=== PATIENT | female | born 1995 | race Caucasian/White ===

== ENCOUNTER → 2017-04-17 | Outpatient (CLI) | payer BC ==
[~2017-04-17] MED LIST: SOLODYN PO
== END ==
LOC: US 15:00
DX: Z13.29 Encounter for screening for other suspected endocrine disorder (principal); E04.2 Nontoxic multinodular goiter

== ENCOUNTER → 2017-08-18 | Outpatient (CLI) | payer BC | END | disposition home or self-care (01) | LOC: US 08-13 10:00 | DX: R10.9 Unspecified abdominal pain (principal) ==

== ENCOUNTER 2019-11-07 09:01 | Emergency (ER) | payer BC ==
[~2019-11-07] VITALS: Ht 162.5 cm; Wt 54.4 kg
[2019-11-07 09:41] LABS: BASO # 0.1 10*3/uL (0.0-0.1); EOS # 0.3 10*3/uL (0.0-0.4); EOS % 3.1 % (1.0-4.0); HEMATOCRIT 35.8 % (37.0-47.0); LYMPH # 2.7 10*3/uL (1.3-4.4); LYMPH % 31.6 % (27.0-41.0); MEAN CELL VOLUME 95.2 fl (81.0-99.0); MEAN CORPUSCULAR HGB 30.6 pg (27.0-31.0); MEAN CORPUSCULAR HGB CONC 32.1 g/dl (33.0-37.0); MONO # 0.6 10*3/uL (0.1-1.0); MONO % 6.4 % (3.0-9.0); NEUT % 57.6 % (47.0-73.0); PLATELET COUNT AUTOMATED 345 10*3/uL (130-400); RED BLOOD COUNT 3.76 10*6/uL (4.10-5.10); RED CELL DISTRI WIDTH 13.7 % (0-14.5); WHITE BLOOD COUNT 8.7 10*3/uL (4.8-10.8)
[2019-11-07 09:42] LABS: BILIRUBIN NEGATIVE (NEGATIVE); CLARITY CLOUDY (CLEAR); COLOR YELLOW (YELLOW); GLUCOSE NEGATIVE (NEGATIVE); KETONE NEGATIVE (NEGATIVE)
[2019-11-07 09:43] LABS: BACTERIA 2+; BLOOD 3+ (NEGATIVE); EPITHELIAL CELLS 21-30; LEUKO ESTERASE NEGATIVE (NEGATIVE); MUCOUS 2+; NITRITE NEGATIVE (NEGATIVE); RBC 51-100 rbc/hpf (0-2); UROBILINOGEN 0.2 E.U./dl (0.2-1.0)
[2019-11-07 09:56] LABS: ALBUMIN 3.1 gm/dl (3.1-4.5); ALKALINE PHOSPHATASE 45 U/L (45-117); BUN 14 mg/dl (7-24); CHLORIDE 106 mmol/L (98-107); CREATININE 0.77 mg/dL (0.55-1.02); LIPASE 95 U/L (73-393); POTASSIUM 4.1 mmol/L (3.5-5.1); SGOT/AST 10 IU/L (3-35); SGPT/ALT 15 U/L (12-78); SODIUM 137 mmol/L (136-145); TOTAL PROTEIN 7.2 gm/dL (6.4-8.2)
[2019-11-07] MEDS ORDERED: FLOMAX0.4 MG PO (11:30)
[2019-11-07] MEDS ORDERED: NAPROSYN500 MG PO (11:30)
[2019-11-07] MEDS ORDERED: ZOFRAN4 MG PO (11:30)
== END 2019-11-07 11:25 | disposition home or self-care (01) ==
LOC: ED 09:01
PROVIDERS: Nurse Practitioner Family
DX: N20.9 Urinary calculus, unspecified (principal); Z79.899 Other long term (current) drug therapy

== ENCOUNTER → 2019-11-25 | Outpatient (CLI) | payer BC ==
[~2019-11-25] MED LIST changes: +FLOMAX0.4 MG PO; +NAPROSYN500 MG PO; +ZOFRAN4 MG PO
== END | disposition home or self-care (01) ==
LOC: US 11-15 10:00
DX: N20.0 Calculus of kidney (principal)

== ENCOUNTER 2020-12-13 20:12 | Emergency (ER) | payer OTHER, BC ==
[~2020-12-13] VITALS: Ht 162.5 cm; Wt 52.2 kg
[2020-12-13] MEDS ORDERED: METHOCARBAMOL500 M1 PO (21:02)
[2020-12-13] MEDS ORDERED: NAPROXEN250 MG PO (21:02)
== END 2020-12-13 21:20 | disposition home or self-care (01) ==
LOC: ED 20:12
DX: R07.89 Other chest pain (principal); Z79.899 Other long term (current) drug therapy; V49.88XA Car occupant (driver) (passenger) injured in other specified transport accidents, initial encounter; Y93.89 Activity, other specified; Y92.413 State road as the place of occurrence of the external cause; Y99.9 Unspecified external cause status

== ENCOUNTER → 2022-10-10 | Outpatient (CLI) | payer OTHER ==
[~2022-10-10] MED LIST changes: +METHOCARBAMOL500 M1 PO; +NAPROXEN250 MG PO
== END | disposition home or self-care (01) ==
LOC: TELEHEALTH 00:55
PROVIDERS: ATTEND Internal Medicine
DX: I26.02 Saddle embolus of pulmonary artery with acute cor pulmonale (principal); Z82.49 Family history of ischemic heart disease and other diseases of the circulatory system; Z30.09 Encounter for other general counseling and advice on contraception; Z15.89 Genetic susceptibility to other disease; Z79.01 Long term (current) use of anticoagulants; Z91.040 Latex allergy status; Z79.899 Other long term (current) drug therapy

== ENCOUNTER → 2022-12-04 | Outpatient (CLI) | payer OTHER ==
[2022-12-04 13:32] LABS: BASO # 0.1 10*3/uL (0.0-0.1); BASO % 1.7 % (0.0-1.0); EOS # 0.1 10*3/uL (0.0-0.4); EOS % 1.7 % (1.0-4.0); HEMATOCRIT 42.3 % (37.0-47.0); LYMPH # 2.3 10*3/uL (1.3-4.4); LYMPH % 36.4 % (27.0-41.0); MEAN CELL VOLUME 92.2 fl (81.0-99.0); MEAN CORPUSCULAR HGB 30.9 pg (27.0-31.0); MEAN CORPUSCULAR HGB CONC 33.6 g/dl (33.0-37.0); MEAN PLATELET VOLUME 9.2 fl (9.6-12.3); MONO # 0.6 10*3/uL (0.1-1.0); MONO % 10.1 % (3.0-9.0); NEUT # 3.2 10*3/uL (2.3-7.9); NEUT % 49.9 % (47.0-73.0); PLATELET COUNT AUTOMATED 398 10*3/uL (130-400); RED BLOOD COUNT 4.59 10*6/uL (4.10-5.10); RED CELL DISTRI WIDTH 12.6 % (0-14.5); WHITE BLOOD COUNT 6.4 10*3/uL (4.8-10.8)
[2022-12-05 14:08] LABS: ANTICARDIOLIPIN AB, IGG, QN <9 GPL U/mL (0-14); ANTICARDIOLIPIN AB, IGM, QN 10 MPL U/mL (0-12)
[2022-12-06 07:07] LABS: DILUTE PROTHROMBIN TIME 51.9 sec (0.0-47.6); DPT CONFIRM RATIO 0.91 Ratio (0.00-1.34); LUPUS DRVVT 88.1 sec (0.0-47.0); PTT-LA 39.9 sec (0.0-43.5); THROMBIN TIME 19.8 sec (0.0-23.0)
[2022-12-06 08:09] LABS: LUPUS REFLEX INTERPRETATION Comment: (.)
[2022-12-06 20:06] LABS: BETA-2 GLYCOPROTEIN I AB,IGG <9 (0-20); BETA-2 GLYCOPROTEIN I AB,IGM <9 (0-32)
== END | disposition home or self-care (01) ==
LOC: LAB 13:10
PROVIDERS: ATTEND Internal Medicine
DX: I26.02 Saddle embolus of pulmonary artery with acute cor pulmonale (principal)

== ENCOUNTER → 2022-12-12 | Outpatient (CLI) | payer OTHER | END | disposition home or self-care (01) | LOC: TELEHEALTH 01:26 → RESCLI 03:37 → TELEHEALTH 15:40 | PROVIDERS: ATTEND Internal Medicine | DX: I26.02 Saddle embolus of pulmonary artery with acute cor pulmonale (principal); Z15.89 Genetic susceptibility to other disease; Z82.49 Family history of ischemic heart disease and other diseases of the circulatory system; Z30.09 Encounter for other general counseling and advice on contraception; Z91.040 Latex allergy status; Z79.01 Long term (current) use of anticoagulants; Z79.899 Other long term (current) drug therapy ==

== ENCOUNTER → 2023-03-20 | Outpatient (CLI) | payer OTHER | END | disposition home or self-care (01) | LOC: TELEHEALTH 02:28 | PROVIDERS: ATTEND Internal Medicine Hematology & Oncology | DX: I26.92 Saddle embolus of pulmonary artery without acute cor pulmonale (principal); F41.9 Anxiety disorder, unspecified; Z91.040 Latex allergy status; Z79.899 Other long term (current) drug therapy ==

== ENCOUNTER → 2023-06-02 | Outpatient (CLI) | payer OTHER | END | disposition home or self-care (01) | LOC: CARD 01:03 | PROVIDERS: ATTEND Internal Medicine | DX: I26.92 Saddle embolus of pulmonary artery without acute cor pulmonale (principal); R00.0 Tachycardia, unspecified; Z98.890 Other specified postprocedural states ==